=== PATIENT | male | born 2000 | race Caucasian/White ===

== ENCOUNTER 2021-09-23 09:35 | Emergency (ER) | payer OTHER ==
[2021-09-23] MEDS: Lidocaine 1% 5 ML VIAL INJECT ONE (11:54)
[2021-09-23] MEDS: Bacitracin/Neomycin/Polymyxin B Oint 0.9 GM U/D Packet ONE (11:54)
[2021-09-23] MEDS: Bacitracin/Neomycin/Polymyxin B Oint 28.4 GM Tube TOP ONE (11:56)
== END 2021-09-23 12:18 | disposition home or self-care (01) ==
LOC: KA.ED 09:35
DX: S61.212A Laceration without foreign body of right middle finger without damage to nail, initial encounter (principal); W22.8XXA Striking against or struck by other objects, initial encounter; Y99.0 Civilian activity done for income or pay
CPT/HCPCS: 12001; 99282; 99283

== ENCOUNTER 2021-12-13 10:36 | Emergency (ER) | payer BC, OTHER | END 2021-12-13 11:33 | disposition home or self-care (01) | LOC: KA.ED 10:36 | DX: J30.2 Other seasonal allergic rhinitis (principal) | CPT/HCPCS: 99282; 99283 ==

== ENCOUNTER 2022-07-27 08:10 | Emergency (ER) | payer OTHER, BC | END 2022-07-27 09:10 | disposition home or self-care (01) | LOC: KA.ED 08:10 | DX: S60.012A Contusion of left thumb without damage to nail, initial encounter (principal); W22.8XXA Striking against or struck by other objects, initial encounter; Y92.89 Other specified places as the place of occurrence of the external cause; Y99.0 Civilian activity done for income or pay | CPT/HCPCS: 73140-FA; 99283 ==